=== PATIENT | female | born 1955 | race Caucasian/White ===

== ENCOUNTER 2024-08-30 21:00 | Inpatient (IN) | payer MEDICARE, MEDICAID ==
[~2024-08-30] VITALS: Ht 160 cm; Wt 67.6 kg
[2024-08-30 22:47] LABS: BASOPHILS % 0.5 % (0.0-2.0); EOSINOPHILS % 0.8 % (0.0-5.0); HEMOGLOBIN. 12.7 g/dL (12.0-16.0); LYMPHOCYTES % 17.1 % (20.0-50.0); MEAN CORPUSCULAR HEMOGLOBIN 30.5 pg (28.0-32.0); MEAN CORPUSCULAR HGB CONC 34.3 g/dL (31.0-37.0); MEAN CORPUSCULAR VOLUME 88.8 fL (81.0-99.0); MEAN PLATELET VOLUME 6.6 fl (7.4-10.4); MONOCYTES % 5.1 % (2.0-8.0); NEUTROPHILS % 76.5 % (40.0-76.0); PLATELET 253 x1000/uL (130-400); RED BLOOD CELL COUNT 4.17 mill/uL (4.2-5.4); WHITE BLOOD COUNT 10.7 x1000/uL (4.5-11.0)
[2024-08-30] MEDS: ONDANSETRON HCL 4MG/2ML INJ IV ONE (22:47)
[2024-08-30 22:49] LABS: CLARITY URINE CLEAR (CLEAR); COLOR URINE YELLOW (YELLOW); GLUCOSE URINE 3+ (NEGATIVE); KETONES URINE NEGATIVE (NEGATIVE); LEUKOCYTE ESTERASE URINE 1+ (NEGATIVE); NITRITE URINE NEGATIVE (NEGATIVE); OCCULT BLOOD URINE TRACE (NEGATIVE); PH URINE 5.5 (4.5-8.0); PROTEIN URINE 1+ (NEGATIVE); SPECIFIC GRAVITY URINE 1.023 (1.005-1.030)
[2024-08-30 22:58] LABS: INR 1.1; PROTHROMBIN TIME 11.4 sec (9.6-11.0)
[2024-08-30 23:01] LABS: BACTERIA URINE NONE SEEN; RBC URINE 0-2 /hpf (0-2); SQUAMOUS EPITHELIAL CELL URINE RARE /lpf (RARE/1+); WBC URINE 0-2 /hpf (0-2)
[2024-08-30 23:04] LABS: CHLORIDE 104 mEq/L (98-107); POTASSIUM 3.8 mEq/L (3.5-5.1); SODIUM 139 mEq/L (136-145)
[2024-08-30 23:05] LABS: CALCIUM 9.6 mg/dL (8.7-10.4); CARBON DIOXIDE 26 mEq/L (21-32)
[2024-08-30] MEDS: MAGNESIUM/ALUMINUM HYDROXIDE/SIMETHICONE 30ML UDC PO STA (23:06)
[2024-08-30] MEDS: PANTOPRAZOLE SODIUM 40 MG/VIAL IV STA (23:07)
[2024-08-30] MEDS: VISCOUS LIDOCAINE 2% 15 ML UDC PO STA (23:08)
[2024-08-30 23:10] LABS: CREATININE 1.2 mg/dL (0.6-1.0); GLUCOSE 129 mg/dL (70-105); UREA NITROGEN BLOOD 27 mg/dL (9-23)
[2024-08-30 23:11] LABS: TROPONIN I HIGH SENSITIVITY 4 ng/L (3.0-34)
[2024-08-30 23:12] LABS: ALANINE AMINOTRANSFERASE 20 IU/L (10-49); ALBUMIN 4.7 g/dL (3.2-4.8); ASPARTATE AMINOTRANSFERASE 35 IU/L (<34); BILIRUBIN DIRECT 0.2 mg/dL (<=3.0); BILIRUBIN TOTAL 0.7 mg/dL (0.1-1.0)
[2024-08-30 23:13] LABS: PROTEIN TOTAL 7.8 g/dL (6.0-8.3)
[2024-08-31 01:20] LABS: T4 FREE 1.26 ng/dL (0.89-1.76); THYROID STIMULATING HORMONE 4.9 uIU/mL (0.55-4.78)
[2024-08-31 02:17] LABS: TROPONIN I HIGH SENSITIVITY < 4 ng/L (3.0-34)
[2024-08-31 02:50] VITALS: BP 144/69; PULSE 54; RESP 18; TEMP 36.7
[2024-08-31] MEDS ORDERED: ONDANSETRON HCL 4MG/2ML INJ IV PRN (03:30)
[2024-08-31] MEDS ORDERED: DOCUSATE SODIUM 100MG CAPSULE PO PRN (03:30)
[2024-08-31] MEDS ORDERED: CLONIDINE 0.1MG TABLET PO PRN (03:30)
[2024-08-31] MEDS ORDERED: ACETAMINOPHEN 325MG TABLET PO PRN ×2 (03:30)
[2024-08-31] MEDS ORDERED: MAGNESIUM/ALUMINUM HYDROXIDE/SIMETHICONE 30ML UDC PO PRN (03:30)
[2024-08-31] MEDS ORDERED: IPRATROPIUM/ALBUTEROL 0.5-3(2.5)MG/3ML NEB HHN PRN (03:30)
[2024-08-31] MEDS ORDERED: GUAIFENESIN 200MG/10ML SUGAR FREE UDC PO PRN (03:30)
[2024-08-31 04:00] VITALS: BP 148/69; PULSE 73; RESP 18; TEMP 36.8; O2SAT 99
[2024-08-31] MEDS ORDERED: VISCOUS LIDOCAINE 2% 15 ML UDC MM PRN (04:15)
[2024-08-31] MEDS: SODIUM CHLORIDE 0.9% 1,000 ML IV ONE (04:52)
[2024-08-31 07:10] LABS: GAMMA GLUTAMYL TRANSPEPTIDASE 55 IU/L (<38)
[2024-08-31 07:12] LABS: PHOSPHORUS 3.6 mg/dL (2.5-4.9)
[2024-08-31 08:00] VITALS: BP 135/52; PULSE 62; RESP 19; TEMP 36.2; O2SAT 100
[2024-08-31] MEDS: PANTOPRAZOLE SODIUM 40 MG/VIAL IV SCH (09:35)
[2024-08-31] MEDS: ENOXAPARIN 40MG/0.4ML SYR SUBCUT SCH (09:35)
[2024-08-31 12:00] VITALS: BP 123/56; PULSE 55; RESP 19; TEMP 36.6; O2SAT 100
[2024-08-31 12:28] VITALS: BP 123/56; PULSE 55; TEMP 97.8; O2SAT 100
[2024-08-31] MEDS ORDERED: MELATONIN 3MG TABLET PO SCH (21:00)
[2024-08-31] MEDS ORDERED: ATORVASTATIN CALCIUM 40MG TABLET PO SCH (21:00)
== END 2024-08-31 12:49 | disposition home or self-care (01) | DRG 392 ==
LOC: ER 21:00 → ENRESERV 08-31 01:38 → 5WST 08-31 02:56
PROVIDERS: ADMIT Internal Medicine; ATTEND Internal Medicine
DX: K52.89 Other specified noninfective gastroenteritis and colitis (principal); N17.9 Acute kidney failure, unspecified; R00.1 Bradycardia, unspecified; N18.9 Chronic kidney disease, unspecified; E03.8 Other specified hypothyroidism; I12.9 Hypertensive chronic kidney disease with stage 1 through stage 4 chronic kidney disease, or unspecified chronic kidney disease; E78.00 Pure hypercholesterolemia, unspecified; E86.0 Dehydration; K83.8 Other specified diseases of biliary tract; R13.10 Dysphagia, unspecified; G47.00 Insomnia, unspecified; N28.1 Cyst of kidney, acquired; M79.2 Neuralgia and neuritis, unspecified; Z88.0 Allergy status to penicillin; Z90.49 Acquired absence of other specified parts of digestive tract; Z90.13 Acquired absence of bilateral breasts and nipples; Z79.899 Other long term (current) drug therapy; Z85.3 Personal history of malignant neoplasm of breast; Z92.21 Personal history of antineoplastic chemotherapy
CPT/HCPCS: 36415; 71045; 74176; 80048; 80076; 81003; 82977; 83036; 83735; 83880; 84100; 84439; 84443; 84481; 84484; 85025; 93005; 99285; A4606; J1650; J2405; J2470